=== PATIENT | male | born 1960 | race Caucasian/White ===

== ENCOUNTER 2018-10-18 07:35 | Day surgery (SDC) | payer BC ==
[~2018-10-18 07:35] MED LIST: Lactated Ringers 1,000 ML IV SCH; Lidocaine 1%/Sod Bicarbonate in NS 8.4% 1 ML Syringe IDERM PRN; Sodium Chloride 0.9% 10 ML Syringe FLUSH PRN
[2018-10-18] MEDS ORDERED: Propofol 200 MG/20 ML SDV ONE ×4 (08:15→09:56)
--- NOTE | 2018-10-18 08:50 | PCM.PREANE ---
Preanesthetic Assessment - Anesthesia/Transfusion/Family Hx Anesthesia History: Prior Anesthesia Without Reaction Family History of Anesthesia Reaction: No - Review of Systems General: Other (Environmental allergies, rhinitis) Pulmonary: No Symptoms (Asthma, controlled. Does not use his inhaler. ) Cardiovascular: No Symptoms Gastrointestinal: No Symptoms Neurological: No Symptoms Other: Reports: None (Cervical Fusion C5-6 and C6-7, good ROM. ) - Physical Assessment NPO Status Date: 10/18/18 NPO Status Time: 04:00 Vital Signs: Last Vital Signs Temp 36.3 C 10/18/18 07:50 Pulse 55 L 10/18/18 07:50 Resp 16 10/18/18 07:50 BP 123/77 10/18/18 07:50 Pulse Ox 96 10/18/18 07:50 Height: 1.73 m Weight: 68.492 kg ASA Class: 2 Mental Status: Alert & Oriented x3 Airway Class: Mallampati = 1 Dentition: Reports: Normal Dentition Thyro-Mental Finger Breadths: 3 Mouth Opening Finger Breadths: 3 ROM/Head Extension: Full Lungs: Clear to Auscultation, Normal Respiratory Effort Cardiovascular: Regular Rate, Regular Rhythm - Allergies Allergies/Adverse Reactions: Allergies Allergy/AdvReac Type Severity Reaction Status Date / Time azithromycin [From Zithromax] Allergy Cannot Verified 10/18/18 08:27 Remember clarithromycin [From Biaxin] Allergy Cannot Verified 10/18/18 08:27 Remember - Acknowledgements Anesthesia Type Planned: MAC Pt an Appropriate Candidate for the Planned Anesthesia: Yes Alternatives and Risks of Anesthesia Discussed w Pt/Guardian: Yes Pt/Guardian Understands and Agrees with Anesthesia Plan: Yes PreAnesthesia Questionnaire HEENT History: Reports: Allergic Rhinitis, Other (See Below) Other HEENT History: hearing loss Cardiovascular History: Reports: Hypertension Other Cardiovascular History: mitral regurgitation not significant required no further treatment Respiratory History: Reports: Asthma Gastrointestinal History: Reports: GERD Genitourinary History: Reports: None 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 Musculoskeletal History: Reports: Arthritis Psychiatric History: Reports: None Endocrine/Metabolic History: Reports: None Hematologic History: Reports: None Immunologic History: Reports: None Oncologic (Cancer) History: Reports: Pancreatic Dermatologic History: Reports: None - Past Surgical History HEENT Surgical History: Reports: Adenoidectomy, Tonsillectomy Cardiovascular Surgical History: Reports: None Respiratory Surgical History: Reports: None GI Surgical History: Reports: Colonoscopy, EGD, Hernia Repair/Other, Other (See Below) Other GI Surgeries/Procedures: whipple procedure Female Surgical History: Reports: None Endocrine Surgical History: Reports: None Neurological Surgical History: Reports: C-Spine Musculoskeletal Surgical History: Reports: None Dermatological Surgical History: Reports: None - SUBSTANCE USE Smoking Status *Q: Never Smoker Recreational Drug Use History: No - HOME MEDS Home Medications: Home Meds Amylase/Lipase/Protease [Evelyn MICHAEL 24,000 Unit] 2 cap PO QID 10/17/18 [History] Colestipol [Colestipol HCl] 1 gm PO TID 10/17/18 [History] Losartan/Hydrochlorothiazide [Losartan-HCTZ 100-12.5 MG] 1 tab PO DAILY [History] Sertraline [Zoloft] 25 mg PO DAILY 10/17/18 [History] Diphenoxylate HCl/Atropine [Lomotil] 1 tab PO QID 10/18/18 [History] - CURRENT (IN HOUSE) MEDS Current Meds: Current Medications Lactated Ringer's (Ringers, Lactated) 1,000 mls @ 125 mls/hr IV ASDIRECTED PIOTR Stop: 10/18/18 23:00 Last Admin: 10/18/18 08:00 Dose: 125 mls/hr Lidocaine/Sodium Bicarbonate (Buffered Lidocaine 1% In Ns 8.4%) 0.25 ml IDERM ONETIME PRN PRN Reason: Prior to IV Start Stop: 10/18/18 18:00 Last Admin: 10/18/18 08:00 Dose: 0.25 ml Sodium Chloride (Saline Flush) 10 ml FLUSH ASDIRECTED PRN PRN Reason: Keep Vein Open Stop: 10/18/18 18:00 Discontinued Medications Propofol (Diprivan 20 Ml) Confirm Administered Dose 200 mg .ROUTE .STK-MED ONE Stop: 10/18/18 08:16
[2018-10-18] MEDS ORDERED: Lidocaine 1% 4 ML ONE (09:02)
[2018-10-18] MEDS ORDERED: Midazolam 1 MG/ML 2 ML SDV ONE (09:03)
--- NOTE | 2018-10-18 10:22 | PCM48HPAN ---
Post Anesthesia Note - EVALUATION WITHIN 48HRS OF ANESTHETIC Vital Signs in Normal Range: Yes Patient Participated in Evaluation: Yes Respiratory Function Stable: Yes Airway Patent: Yes Cardiovascular Function Stable: Yes Hydration Status Stable: Yes Pain Control Satisfactory: Yes Nausea and Vomiting Control Satisfactory: Yes Mental Status Recovered: Yes Vital Signs: Last Vital Signs 98F 47 81/46 12 95%
--- NOTE | 2018-10-18 17:19 | OR ---
DATE OF OPERATION: 10/18/2018 SURGEON: Bhaskar Ferrara MD PREOPERATIVE DIAGNOSIS: Colorectal cancer screening. POSTOPERATIVE DIAGNOSIS: Colorectal cancer screening. OPERATION PERFORMED: Screening colonoscopy. INDICATION: The patient was fully informed of the major risks, benefits, and alternatives for undergoing a screening colonoscopy. These include, but are not limited to perforation of the colon, bleeding, the risks of anesthesia, and the possibility of further surgery. He gave informed consent. FINDINGS: Normal colonoscopy. I did identify some rectal mucosal prolapse, which was quite mild. He had no evidence of a rectocele. No polyps were identified. I did not identify diverticulosis. He had an excellent bowel prep. ANESTHESIA: MAC. PATHOLOGY: For the colon, none. DESCRIPTION OF PROCEDURE: The patient was brought to the operating room. He underwent an EGD under monitored anesthesia. Please see previous dictation for further details of the beginning of the operation. We turned our attention to the colonoscopy. A digital rectal exam was performed. He had some mucosal prolapse of the rectum, which was quite mild. I did not identify rectocele. I introduced the colonoscope with copious lubrication into the rectum. I advanced the scope, keeping the lumen in view at all times. He had somewhat of a redundant floppy colon. I advanced the scope with gentle forward pressure to the cecum. The cecum was documented photographically. I slowly investigated the mucosa of the colon from the cecum back to the anus in an exam lasting 9 minutes. No polyps were identified. No diverticulosis was identified. He had an otherwise unremarkable exam. At the end of the procedure, the scope was withdrawn. He had no complications and tolerated this procedure well. PLAN: I will see him in my office to discuss results of his pathology. ESTIMATED BLOOD LOSS: MMODAL /[id number]
--- NOTE | 2018-10-19 08:39 | OR ---
DATE OF OPERATION: 10/18/2018 SURGEON: Bhaskar Ferrara MD PREOPERATIVE DIAGNOSIS: Epigastric abdominal pain, history of gastric ulcers. POSTOPERATIVE DIAGNOSIS: Epigastric abdominal pain, history of gastric ulcers. Sliding hiatal hernia and gastric ulcers. PROCEDURE: EGD with biopsies. ANESTHESIA: MAC. FINDINGS: He has evidence of the previous Whipple operation. The antrum of the stomach appears absent. There were multiple small ulcerations in the stomach. He also was noted to have a sliding hiatal hernia and a patulous GE junction. I found no evidence of Baird's esophagus. PATHOLOGY: 1. Body of the stomach biopsy. 2. Fundus of stomach biopsy. 3. GE junction biopsies. 4. Distal esophagus biopsies. 5. Testing for H. pylori was requested. I found no evidence of ulcerations within what appears to be the jejunum. DISPOSITION: Stable at the end of procedure. ESTIMATED BLOOD LOSS: Minimal. COMPLICATIONS: None. INDICATION: Barry is a 58-year-old male with a history of pancreatic cancer, status post Whipple operation. He has had a long history of epigastric abdominal pain. He has had previous scopes demonstrating gastric ulcers. He is on multiple medications for acid suppression. He was offered a diagnostic EGD for persistent epigastric abdominal pain. He was fully informed of the major risks, benefits, and alternatives. These were discussed, both in my office and on the day of the procedure. The risks include, but are not limited to perforation of the GI tract, bleeding, recurrent surgery, aspiration pneumonia, laryngeal spasm, and others. He gave informed consent of what was done. DESCRIPTION OF PROCEDURE: Barry was brought to the gastro suite and placed in the left lateral decubitus position. He was given monitored anesthesia. A bite block was placed I introduced the scope into the proximal esophagus and advanced it with gentle forward pressure. I reached the GE junction. I identified a sliding hiatal hernia. I found no evidence of Baird's. I passed the scope into the stomach, into the body of the stomach identified a gastric jejunostomy and scope. The jejunum short portion found no ulcerations. I surveyed the mucosa of the stomach and found multiple punctate gastric ulcers in various stages of healing. The body and fundus were biopsied and tested for H. pylori. I retroflexed the scope visualizing the GE junction confirming the presence of a sliding hiatal hernia without the evidence of Baird's esophagus. He has a patulous GE junction. Further biopsy was taken as discussed above. I withdrew the scope into the esophagus, biopsying the GE junction and distal esophagus. The remainder of his exam was unremarkable. The scope was withdrawn investigating the mucosa of the esophagus in its entirety. Finally, the scope was removed in its entirety. He was awakened from anesthesia, and we then turned our attention to the colonoscopy. Please see the details of that dictation forthcoming. KIKE /[id number]
== END 2018-10-18 11:20 | disposition home or self-care (01) ==
LOC: JD.SDS 07:35
PROVIDERS: ATTEND Surgery
DX: Z12.11 Encounter for screening for malignant neoplasm of colon (principal); K62.3 Rectal prolapse; Q43.8 Other specified congenital malformations of intestine; K21.0 Gastro-esophageal reflux disease with esophagitis; K25.9 Gastric ulcer, unspecified as acute or chronic, without hemorrhage or perforation; K44.9 Diaphragmatic hernia without obstruction or gangrene; I10 Essential (primary) hypertension; I34.0 Nonrheumatic mitral (valve) insufficiency; J45.909 Unspecified asthma, uncomplicated; H90.5 Unspecified sensorineural hearing loss; M19.90 Unspecified osteoarthritis, unspecified site; Z88.1 Allergy status to other antibiotic agents; Z85.07 Personal history of malignant neoplasm of pancreas; Z80.0 Family history of malignant neoplasm of digestive organs; Z79.899 Other long term (current) drug therapy
CPT/HCPCS: 43239; 45378; J2001; J2250; J2704; J7120

== ENCOUNTER 2020-06-25 13:39 | Day surgery (SDC) | payer BC ==
--- NOTE | 2020-06-25 13:24 | PCM.PREANE ---
Preanesthetic Assessment - Procedure Proposed Procedure: DIAG EGD - Anesthesia/Transfusion/Family Hx Anesthesia History: Prior Anesthesia Without Reaction Family History of Anesthesia Reaction: No Transfusion History: No Prior Transfusion(s) - Review of Systems General: No Symptoms Pulmonary: No Symptoms Cardiovascular: No Symptoms Gastrointestinal: Abdominal Pain (heartburn), Diarrhea (normal) Neurological: No Symptoms Other: Reports: Depression - Physical Assessment NPO Status Date: 06/24/20 NPO Status Time: 22:00 Vital Signs: 97.2 16 97% 54 149/88 Height: 5 ft 8 in Weight: 68.3 kg ASA Class: 2 Mental Status: Alert & Oriented x3 Airway Class: Mallampati = 1 Dentition: Reports: Normal Dentition Thyro-Mental Finger Breadths: 3 Mouth Opening Finger Breadths: 3 ROM/Head Extension: Full Lungs: Clear to Auscultation, Normal Respiratory Effort Cardiovascular: Regular Rate, Regular Rhythm - Allergies Allergies/Adverse Reactions: Allergies Allergy/AdvReac Type Severity Reaction Status Date / Time azithromycin [From Zithromax] Allergy Cannot Verified 10/18/18 08:27 Remember clarithromycin [From Biaxin] Allergy Cannot Verified 10/18/18 08:27 Remember - Blood Blood Available: No - Acknowledgements Anesthesia Type Planned: MAC Pt an Appropriate Candidate for the Planned Anesthesia: Yes Alternatives and Risks of Anesthesia Discussed w Pt/Guardian: Yes Pt/Guardian Understands and Agrees with Anesthesia Plan: Yes PreAnesthesia Questionnaire HEENT History: Reports: Allergic Rhinitis, Other (See Below) Other HEENT History: hearing loss Cardiovascular History: Reports: Hypertension Other Cardiovascular History: mitral regurgitation not significant required no further treatment Respiratory History: Reports: Asthma Gastrointestinal History: Reports: GERD Genitourinary History: Reports: None 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 Musculoskeletal History: Reports: Arthritis Psychiatric History: Reports: Anxiety, Depression Endocrine/Metabolic History: Reports: None Hematologic History: Reports: None Immunologic History: Reports: None Oncologic (Cancer) History: Reports: Pancreatic Dermatologic History: Reports: None - Past Surgical History HEENT Surgical History: Reports: Adenoidectomy, Tonsillectomy Cardiovascular Surgical History: Reports: None Respiratory Surgical History: Reports: None GI Surgical History: Reports: Colonoscopy, EGD, Hernia Repair/Other, Other (See Below) Other GI Surgeries/Procedures: whipple procedure Female Surgical History: Reports: None Endocrine Surgical History: Reports: None Neurological Surgical History: Reports: C-Spine Musculoskeletal Surgical History: Reports: None Dermatological Surgical History: Reports: None - SUBSTANCE USE Tobacco Use Status *Q: Never Tobacco User Tobacco Use Within Last Twelve Months: No Second Hand Smoke Exposure: No Days Per Week of Alcohol Use: 2 Recreational Drug Use History: No - HOME MEDS Home Medications: Home Meds Amylase/Lipase/Protease [Creon DR 24,000 Unit] 2 cap PO QID 10/17/18 [History] Colestipol [Colestipol HCl] 1 gm PO TID 10/17/18 [History] Losartan/Hydrochlorothiazide [Losartan-HCTZ 100-12.5 MG] 1 tab PO DAILY 10/17/18 [History] Sertraline [Zoloft] 25 mg PO DAILY 10/17/18 [History] Diphenoxylate HCl/Atropine [Lomotil] 1 tab PO QID 10/18/18 [History] - CURRENT (IN HOUSE) MEDS Current Meds: Current Medications Lactated Ringer's (Ringers, Lactated) 1,000 mls @ 125 mls/hr IV ASDIRECTED PIOTR Stop: 06/25/20 23:00 Lidocaine/Sodium Bicarbonate (Lidocaine 1%/Sod Bicarbonate In Ns 8.4% 1 Ml Syringe) 0.25 ml IDERM ONETIME PRN PRN Reason: Prior to IV Start Stop: 06/25/20 18:00 Sodium Chloride (Sodium Chloride 0.9% 10 Ml Syringe) 10 ml FLUSH ASDIRECTED PRN PRN Reason: Keep Vein Open Stop: 06/25/20 18:00 Discontinued Medications Fentanyl (Fentanyl 100 Mcg/2 Ml Sdv) Confirm Administered Dose 100 mcg .ROUTE .STK-MED ONE Stop: 06/25/20 11:59 Lidocaine HCl (Xylocaine-Mpf 1%) Confirm Administered Dose 4 mls @ as directed .ROUTE .STK-MED ONE Stop: 06/25/20 11:59 Midazolam HCl (Midazolam 1 Mg/Ml 2 Ml Sdv) Confirm Administered Dose 2 mg .ROUTE .STK-MED ONE Stop: 06/25/20 11:59 Propofol (Propofol 200 Mg/20 Ml Sdv) Confirm Administered Dose 200 mg .ROUTE .STK-MED ONE Stop: 06/25/20 11:59
[~2020-06-25 13:39] MED LIST changes: +Lidocaine 1% 4 ML ONE; +Midazolam 1 MG/ML 2 ML SDV ONE; +Propofol 200 MG/20 ML SDV ONE; +fentaNYL 100 MCG/2 ML SDV ONE
--- NOTE | 2020-06-25 14:04 | PCM.PRNOTE ---
- Free Text/Narrative Note: Date: 06/25/2020 Procedure: diagnostic esophagogastroduodenoscopy Indication: History of reflux with question of short segment Baird esophagus on last EGD 2019 Endoscopist: Ricco Troncoso MD Findings: evidence of antrectomy with gastrojejunal anastomosis. Bile reflux noted. No significant hiatal hernia, no findings of gross esophagitis or metaplasia. Detailed Report: The patient was taken to the endoscopy suite and placed in left lateral decubitus position. Time out was performed and monitored anesthesia care was initiated. A bite block was placed. The endoscope was inserted into the mouth and advanced to the stomach. The gastrojejunal anastomosis was identified. The opening was only slightly larger than the diameter of the scope. There was evidence of bile refluxate in the stomach. Jejunal mucosa looked normal. There appeared to be some inflammatory change of the gastric mucosa. A biopsy of gas tric mucosa was obtained with cold forceps. There was no ulcer. No hiatal hernia was noted on retroflexion. The scope was withdrawn into the distal esophagus. The Z line appeared normal. A biopsy was taken of distal esophageal mucosa. The entire esophagus appeared normal. Air was suctioned from the stomach prior to withdrawal of the scope. The patient tolerated the procedure well.
--- NOTE | 2020-06-25 14:05 | PCM48HPAN ---
Post Anesthesia Note - EVALUATION WITHIN 48HRS OF ANESTHETIC Vital Signs in Normal Range: Yes Patient Participated in Evaluation: Yes Respiratory Function Stable: Yes Airway Patent: Yes Cardiovascular Function Stable: Yes Hydration Status Stable: Yes Pain Control Satisfactory: Yes Nausea and Vomiting Control Satisfactory: Yes Mental Status Recovered: Yes Vital Signs: Last Vital Signs Temp 97.2 F 06/25/20 13:15 Pulse 54 L 06/25/20 13:15 Resp 16 06/25/20 13:15 BP 149/88 H 06/25/20 13:15 Pulse Ox 97 06/25/20 13:15 1358 101/70 94% 60 12 97.9
== END 2020-06-25 14:35 | disposition home or self-care (01) ==
LOC: JD.SDS 13:39
PROVIDERS: ATTEND Surgery
DX: K21.9 Gastro-esophageal reflux disease without esophagitis (principal); J45.909 Unspecified asthma, uncomplicated; I10 Essential (primary) hypertension; Z88.1 Allergy status to other antibiotic agents; Z98.0 Intestinal bypass and anastomosis status; Z79.899 Other long term (current) drug therapy; Z98.890 Other specified postprocedural states
CPT/HCPCS: 43239; J2250; J2704; J7120; 00731; J3010